=== PATIENT | male | born 1935 | race Caucasian/White ===

== ENCOUNTER → 2017-10-28 | Outpatient (CLI) | payer MEDICARE, OTHER ==
[~2017-10-28] MED LIST: ACET-1757 PO; ASPI-496 PO; HYDR-3237 PO; LOVA40TA2 PO; OMEG300C PO; OMEP20CA9 PO
== END | disposition home or self-care (01) ==
LOC: CVU 07:21
PROVIDERS: ATTEND Internal Medicine Cardiovascular Disease
DX: I08.0 Rheumatic disorders of both mitral and aortic valves (principal); I65.23 Occlusion and stenosis of bilateral carotid arteries; Z95.0 Presence of cardiac pacemaker
CPT/HCPCS: 93306; 93880

== ENCOUNTER 2018-04-09 21:58 | Inpatient (IN) | payer MEDICARE, OTHER ==
[~2018-04-09] VITALS: Ht 175.3 cm; Wt 77.3 kg
[2018-04-09 22:25] LABS: BASOPHILS # (AUTO) 0.05 x10^3/uL (0-0.1); BASOPHILS % (AUTO) 1 % (0-1); EOSINOPHILS # (AUTO) 0.16 x10^3/uL (0-0.4); EOSINOPHILS % (AUTO) 2 % (1-7); LYMPHOCYTES # (AUTO) 1.55 x10^3/uL (1-3.4); LYMPHOCYTES % (AUTO) 24 % (22-44); MD NO; MEAN CORPUSCULAR HEMOGLOBIN 32.4 pg (27.5-34.5); MEAN CORPUSCULAR HGB CONC 34.8 g/dL (33.2-36.2); MEAN PLATELET VOLUME 7.1 fL (7.4-10.4); MONOCYTES # (AUTO) 0.42 x10^3/uL (0.2-0.8); MONOCYTES % (AUTO) 7 % (2-9); NEUTROPHILS % (AUTO) 66 % (42-75); PLATELET COUNT 178 x10^3/uL (130-400); RED BLOOD COUNT 4.33 x10^6/uL (4.38-5.82); RED CELL DISTRIBUTION WIDTH 12.4 % (9.4-14.8)
[2018-04-09] MEDS ORDERED: SODIUM CHLORIDE FLUSH 10ML SYR IVF ONE (22:30)
[2018-04-09 22:36] LABS: INTERNATIONAL NORMALIZED RATIO 1.06 (0.93-1.1); PROTHROMBIN TIME 11.2 Seconds (9.6-11.5)
[2018-04-09 22:37] LABS: ALANINE AMINOTRANSFERASE 31 U/L (12-78); ALBUMIN 3.5 g/dL (3.4-5.0); ANION GAP 9 mmol/L (5-15); CALCIUM 7.9 mg/dL (8.5-10.1); CHLORIDE 102 mmol/L (98-107); CREATININE 1.16 mg/dL (0.7-1.3)
[2018-04-09 22:41] LABS: ALKALINE PHOSPHATASE 70 U/L (45-117); BILIRUBIN,TOTAL 0.4 mg/dL (0.2-1.0); TOTAL PROTEIN 6.8 g/dL (6.4-8.2); TROPONIN I < 0.015 ng/mL (0.000-0.045)
[2018-04-09] MEDS ORDERED: APIX5TAB PO (23:02)
[2018-04-09 23:51] VITALS: BP 114/74
[2018-04-10] VITALS (7 sets, daily range): BP systolic 104–127; BP diastolic 65–80
[2018-04-10] MEDS ORDERED: DOCUSATE 100 MG CAPSULE PO PRN (00:30)
[2018-04-10] MEDS ORDERED: ACETAMINOPHEN 325 MG TABLET PO PRN (00:30)
[2018-04-10] MEDS ORDERED: ONDANSETRON ODT 4 MG PO PRN (00:30)
[2018-04-10] MEDS ORDERED: hydrALAzine 20 MG/ML, 1ML IVPush PRN (00:30)
[2018-04-10] MEDS ORDERED: TEMAZEPAM 15 MG CAPSULE PO PRN (00:30)
[2018-04-10] MEDS ORDERED: LIDODERM 5% PATCH TD PRN (00:30)
[2018-04-10] MEDS: OMEPRAZOLE 20 MG CAPSULE.DR PO SCH (05:25)
[2018-04-10] MEDS: APIXABAN 5 MG TABLET PO SCH ×2 (09:20→20:19)
[2018-04-11 02:00] VITALS: BP 154/89
[2018-04-11] MEDS: OMEPRAZOLE 20 MG CAPSULE.DR PO SCH (05:44)
[2018-04-11 05:56] LABS: BASOPHILS # (AUTO) 0.03 x10^3/uL (0-0.1); BASOPHILS % (AUTO) 1 % (0-1); EOSINOPHILS % (AUTO) 4 % (1-7); LYMPHOCYTES # (AUTO) 1.47 x10^3/uL (1-3.4); LYMPHOCYTES % (AUTO) 21 % (22-44); MD NO; MEAN CORPUSCULAR HEMOGLOBIN 32.3 pg (27.5-34.5); MEAN CORPUSCULAR HGB CONC 35.3 g/dL (33.2-36.2); MEAN CORPUSCULAR VOLUME 91.7 fL (81-97); MEAN PLATELET VOLUME 7.3 fL (7.4-10.4); MONOCYTES # (AUTO) 0.68 x10^3/uL (0.2-0.8); MONOCYTES % (AUTO) 10 % (2-9); NEUTROPHILS # (AUTO) 4.65 x10^3/uL (1.8-6.8); NEUTROPHILS % (AUTO) 65 % (42-75); PLATELET COUNT 163 x10^3/uL (130-400); RED BLOOD COUNT 4.39 x10^6/uL (4.38-5.82); RED CELL DISTRIBUTION WIDTH 12.9 % (9.4-14.8)
[2018-04-11 06:06] LABS: ANION GAP 6 mmol/L (5-15); CALCIUM 8.6 mg/dL (8.5-10.1); CHLORIDE 106 mmol/L (98-107)
[2018-04-11 06:08] LABS: CREATININE 1.02 mg/dL (0.7-1.3)
[2018-04-11 06:23] VITALS: BP 160/84
[2018-04-11 06:24] VITALS: BP 144/82
[2018-04-11 06:25] VITALS: BP 145/77
[2018-04-11 06:55] VITALS: BP 159/88
[2018-04-11] MEDS: APIXABAN 5 MG TABLET PO SCH (09:58)
[2018-04-11 11:49] LABS: MICROSCOPIC NOT IND
[2018-04-11 12:14] LABS: CULTURE INDICATED? NO
== END 2018-04-11 12:58 | disposition home or self-care (01) | DRG 74 ==
LOC: ED 22:30 → EDIP 23:00 → 4WST 23:49 → 4EST 04-10 22:20 → DCLOUNGE 04-11 12:40
PROVIDERS: ADMIT Internal Medicine; ATTEND Internal Medicine
DX: G90.9 Disorder of the autonomic nervous system, unspecified (principal); E87.1 Hypo-osmolality and hyponatremia; D68.69 Other thrombophilia; K21.9 Gastro-esophageal reflux disease without esophagitis; F03.90 Unspecified dementia, unspecified severity, without behavioral disturbance, psychotic disturbance, mood disturbance, and anxiety; I48.91 Unspecified atrial fibrillation; Z95.0 Presence of cardiac pacemaker; R00.1 Bradycardia, unspecified; E78.00 Pure hypercholesterolemia, unspecified; E78.5 Hyperlipidemia, unspecified; I10 Essential (primary) hypertension; Z82.49 Family history of ischemic heart disease and other diseases of the circulatory system; Z87.891 Personal history of nicotine dependence; Z96.651 Presence of right artificial knee joint; Z90.49 Acquired absence of other specified parts of digestive tract
CPT/HCPCS: 36415; 71045; 80048; 80053; 81003; 83880; 84484; 85025; 85610; 85730; 93005; 93306; 93880; 99285; G0378

== ENCOUNTER 2018-10-19 13:01 | Outpatient (CLI) | payer MEDICARE, OTHER | END 2018-10-19 23:59 | disposition home or self-care (01) | LOC: CFH 13:01 | PROVIDERS: ATTEND Psychiatry & Neurology Neurology | DX: G31.9 Degenerative disease of nervous system, unspecified (principal) | CPT/HCPCS: 70450 ==

== ENCOUNTER → 2020-06-03 | Outpatient (CLI) | payer MEDICARE, OTHER ==
[~2020-06-03] MED LIST changes: -ACET-1757 PO; +ACET-2065 PO; +APIX5TAB PO
== END | disposition home or self-care (01) ==
LOC: CVU 13:08
PROVIDERS: ATTEND Internal Medicine Cardiovascular Disease
DX: I35.8 Other nonrheumatic aortic valve disorders (principal); I65.23 Occlusion and stenosis of bilateral carotid arteries; I48.0 Paroxysmal atrial fibrillation
CPT/HCPCS: 93306; 93880